=== PATIENT | male | born 1960 | race Caucasian/White ===

== ENCOUNTER 2018-06-17 17:24 | Inpatient (IN) | payer OTHER ==
[2018-06-17 20:28] VITALS: BMI 24.0
--- NOTE | 2018-06-17 22:19 | HP ---
"CIWA Score Nausea/Vomitin-No Nausea/No Vomiting Muscle Tremors: 3 Anxiety: 5 Agitation: 4-Moderately Restless Paroxysmal Sweats: No Perspiration Orientation: 0-Oriented Tacttile Disturbances: 1-Very Mild Itch/Numbness Auditory Disturbances: 0-None Visual Disturbances: 0-None Headache: 0-None Present CIWA-Ar Total Score: 13 - Admission Criteria OASAS Guidelines: Admission for Medically Managed Detox: Requires at least one of the followin. CIWA greater than 12 2. Seizures within the past 24 hours 3. Delirium tremens within the past 24 hours 4. Hallucinations within the past 24 hours 5. Acute intervention needed for co occurring medical disorder 6. Acute intervention needed for co occurring psychiatric disorder 7. Severe withdrawal that cannot be handled at a lower level of care (continued vomiting, continued diarrhea, abnormal vital signs) requiring intravenous medication and/or fluids 8. Patient presents the following: Acute intervention needed for co-occurring med or psych disorder Admission Criteria Met: Admission criteria met Admission ROS [facility] Chief Complaint: seeking detox/ rehab for polysubstance abuse Allergies/Adverse Reactions: Allergies Allergy/AdvReac Type Severity Reaction Status Date / Time No Known Allergies Allergy Unverified 06/17/18 20:23 History of Present Illness: 57 y.o. male with polysubstance abuse to include alcohol abuse and opioid dependence on mmtp here for detox. client is self referred. known to the program. ciwa 13 client reports only drinking 3 beers approx 3 times a week. hx/ o intake poor as client keeps giving conflicting information regarding use and frequency. denies cravings or withdrawal seizures. client is rx clonazepam 1 mg daily for hx/o anxiety. he is currently maintained on methadone 60 mg daily. reports last dosed today here at [facility] outpatient. reports longest clean time 1 year. denies si/hi/avh. domiciled,employed-auto claim representative, denies legals This report was requested by: Ana Gonzalez | Reference #: [id number] You have not added a AMAN number. Keeping your AMAN number(s) up to date on the My AMAN Numbers page will enable the separation of your prescriptions from others ' in the search results. Others' Prescriptions Patient Name: Jesus Fleming Date: 1960 Address: [address] [place] [address] Sex: Male Rx Written Rx Dispensed Drug Quantity Days Supply Prescriber Name 05/20/2018 05/20/2018 clonazepam 1 mg tablet 60 30 Judy Reynolds MD 05/05/2018 05/05/2018 clonazepam 1 mg tablet 30 15 Judy Reynolds MD 04/05/2018 04/05/2018 clonazepam 1 mg tablet 60 30 Judy Reynolds MD 03/04/2018 03/04/2018 clonazepam 1 mg tablet 60 30 Judy Reynolds MD 01/28/2018 01/28/2018 clonazepam 1 mg tablet 90 30 Judy Reynolds MD 12/30/2017 12/31/2017 clonazepam 1 mg tablet 90 30 Judy Reynolds MD 11/30/2017 12/06/2017 clonazepam 1 mg tablet 90 30 Judy Reynolds MD Exam Limitations: Altered Mental Status (delyed responses possible related to substance abuse) - Ebola screening Have you traveled outside of the country in the last 21 days: No (N) Have you had contact with anyone from an Ebola affected area: No Do you have a fever: No - Review of Systems Constitutional: Chills, Loss of Appetite, Changes in sleep, Unintentional Wgt. Loss EENT: reports: Dental Problems (dentures top/bottom) Respiratory: reports: No Symptoms reported Cardiac: reports: No Symptoms Reported GI: reports: Poor Appetite, Poor Fluid Intake, Other (rectal pain-chronic) : reports: No Symptoms Reported Musculoskeletal: reports: Joint Pain (chronic), Other (ambualtes with cane) Integumentary: reports: Rash (to upper extremities. denies pruritis) Neuro: reports: Tremors, Unsteady Gait (ambualtes with cane) Endocrine: reports: No Symptoms Reported Hematology: reports: No Symptoms Reported Psychiatric: reports: Anxious, Depressed Other Systems: Reviewed and Negative Patient History - Patient Medical History Hx Anemia: No Hx Asthma: No Hx Chronic Obstructive Pulmonary Disease (COPD): No Hx Cancer: No Hx Cardiac Disorders: No Hx Congestive Heart Failure: No Hx Hypertension: No Hx Hypercholesterolemia: Yes Hx Pacemaker: No HX Cerebrovascular Accident: No Hx Seizures: No Hx Dementia: No Hx Diabetes: No Hx Gastrointestinal Disorders: Yes (dilated cbd,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,pancreatic hepatic neoplasm) Hx Liver Disease: Yes (hx/o cirrhosis) Hx Genitourinary Disorders: No Hx Sexually Transmitted Disorders: No Hx Renal Disease (ESRD): No Hx Thyroid Disease: No Hx Human Immunodeficiency Virus (HIV): No (negative) Hx Hepatitis C: Yes (eradicated with 6 months therapy 2007) Hx Depression: Yes (last week patient stated 'feeling dedpressed') Hx Suicide Attempt: No Hx Bipolar Disorder: No Hx Schizophrenia: No - Patient Surgical History Past Surgical History: No Hx Neurologic Surgery: No Hx Cataract Extraction: No Hx Cardiac Surgery: No Hx Lung Surgery: No Hx Breast Surgery: No Hx Breast Biopsy: No Hx Abdominal Surgery: No Hx Appendectomy: No Hx Cholecystectomy: No Hx Genitourinary Surgery: No Hx Section: No Hx Orthopedic Surgery: Yes (ARTHROSCOPY LEFT KNEE) Anesthesia Reaction: No - PPD History Previous Implant?: Yes Documented Results: Negative w/proof Implanted On Prior [facility] Admission?: Yes Date: 11/23/13 Results: 0mm PPD to be Administered?: Yes - Smoking Cessation Smoking history: Current every day smoker Have you smoked in the past 12 months: Yes Aproximately how many cigarettes per day: 6 Cigars Per Day: 0 Hx Chewing Tobacco Use: Yes Initiated information on smoking cessation: Yes 'Breaking Loose' booklet given: 06/17/18 - Substance & Tx. History Hx Alcohol Use: Yes Hx Substance Use: Yes Substance Use Type: Alcohol, Cocaine, Heroin, Marijuana, Prescribed (mtd, clonzepam) Hx Substance Use Treatment: Yes ([facility]) - Substances abused Alcohol Substance route: Oral Frequency: 3-6 times per week Amount used: liquor- 2 pint, beer- 3 cans Age of first use: 19 Date of last use: 06/16/18 Marijuana/Hashish Substance route: Oral Frequency: 1-3 times last 30 days Amount used: 1 joint Age of first use: 12 Date of last use: 06/14/18 Cocaine Substance route: Inhalation Frequency: 3-6 times per week Amount used: 2 bags Age of first use: 17 Date of last use: 06/16/18 Family Disease History - Family Disease History Family Disease History: CA: Father (), Mother (BREAST) Admission Physical Exam BHS - Vital Signs Vital Signs: Vital Signs - 24 hr 05/03/19 20:19 Temperature 96.7 F L Pulse Rate 77 Respiratory 20 Rate Blood Pressure 122/81 - Physical General Appearance: Yes: Appropriately Dressed, Other (poor historian inconsistent hx/o ? due to drug use) HEENTM: Yes: EOMI, Normocephalic, Normal Voice, JOHNY, Pharynx Normal, Other ( dentures both) Respiratory: Yes: Chest Non-Tender, Lungs Clear, Normal Breath Sounds, No Respiratory Distress, No Accessory Muscle Use Neck: Yes: No masses,lesions,Nodules, Supple, Trachea in good position Breast: Yes: Breast Exam Deferred Cardiology: Yes: Regular Rhythm, Regular Rate, S1, S2 Abdominal: Yes: Normal Bowel Sounds, Non Tender, Flat, Soft Genitourinary: Yes: Within Normal Limits Back: Yes: Normal Inspection Musculoskeletal: Yes: Other (ambualtes with cane) Extremities: Yes: Normal Capillary Refill, Normal Range of Motion, Non-Tender, Tremors Neurological: Yes: Alert, Motor Strength 5/5, Disoriented, Depressed Affect Integumentary: Yes: Moist, Rash (diffuse flat patches of redness noted to front/ back torso arms. client reports some pruritis. reports rash is chronic present x 3 years) Lymphatic: Yes: Within Normal Limits - Diagnostic (1) Cannabis abuse, uncomplicated Current Visit: Yes Status: Acute (2) Cocaine dependence, uncomplicated Current Visit: Yes Status: Acute (3) Uncomplicated opioid abuse Current Visit: Yes Status: Chronic (4) Hepatitis C Current Visit: Yes Status: Chronic Qualifiers: Viral hepatitis chronicity: unspecified (5) Opioid dependence on agonist therapy Current Visit: Yes Status: Chronic (6) Anxiety Current Visit: Yes Status: Chronic (7) Chronic pain of multiple joints Current Visit: Yes Status: Chronic Comment: antiinflammatory diet, gentle ROM (8) Rash of unknown cause Current Visit: Yes Status: Chronic Cleared for Admission S - Detox or Rehab [facility] Level of Care: Medically Managed Detox Regimen/Protocol: Librium Claeared for Rehab Admission: No Inpatient Rehab Admission - Rehab Decision to Admit Inpatient rehab admission?: No"
[2018-06-17] MEDS ORDERED: IBUPROFEN 400 MG TABLET (FP) PO PRN ×2 (22:48)
[2018-06-17] MEDS ORDERED: BISMUTH SUBSALICYLATE 524 MG/30 ML UD PO PRN (22:48)
[2018-06-17] MEDS ORDERED: hydrOXYzine PAMOATE 25 MG CAPSULE (FP) PO PRN (22:48)
[2018-06-17] MEDS ORDERED: MENTHOL/PHENOL 1 EACH UD MM PRN (22:48)
[2018-06-17] MEDS ORDERED: BACLOFEN 10 MG TABLET (FP) PO PRN (22:48)
[2018-06-17] MEDS ORDERED: METHOCARBAMOL 500 MG TABLET PO PRN (22:48)
[2018-06-17] MEDS ORDERED: ONDANSETRON *ODT* 4 MG TABLET SL PRN (22:48)
[2018-06-17] MEDS ORDERED: chlordiazePOXIDE HCL 25 MG CAPSULE PO ONE (22:48)
[2018-06-17] MEDS ORDERED: ACETAMINOPHEN 325 MG TABLET (FP) PO PRN ×2 (22:48)
[2018-06-17] MEDS ORDERED: MAG HYDROX/AL HYDROX/SIMETH 30 ML UNIT-DOSE CUP PO PRN (22:48)
[2018-06-17] MEDS ORDERED: guaiFENesin 200 MG/10 ML 10 ML UNIT-DOSE CUPS PO PRN (22:48)
[2018-06-17] MEDS ORDERED: MAGNESIUM HYDROX 2400MG/30ML ORAL SUSPENSION 30 ML CUP PO PRN (22:48)
[2018-06-17] MEDS ORDERED: NICOTINE POLACRILEX 2 MG GUM BUC PRN (22:48)
[2018-06-17] MEDS ORDERED: P-EPHED 60MG/TRIPROLIDI 2.5MG TABLET PO PRN (22:48)
[2018-06-17] MEDS ORDERED: DICYCLOMINE HCL 10 MG CAPSULE PO PRN (22:48)
[2018-06-17] MEDS ORDERED: MAGNESIUM CITRATE 300 ML BOTTLE PO PRN (22:48)
[2018-06-17] MEDS ORDERED: chlordiazePOXIDE HCL 10 MG CAPSULE PO PRN (22:48)
[2018-06-17] MEDS: chlordiazePOXIDE HCL 25 MG CAPSULE PO SCH (23:48)
[2018-06-18] MEDS: chlordiazePOXIDE HCL 25 MG CAPSULE PO SCH ×2 (05:34→13:24)
--- NOTE | 2018-06-18 08:26 | EKG ---
Test Reason : Blood Pressure : / mmHG Vent. Rate : 080 BPM Atrial Rate : 080 BPM P-R Int : 180 ms QRS Dur : 106 ms QT Int : 386 ms P-R-T Axes : 077 065 069 degrees QTc Int : 445 ms NORMAL SINUS RHYTHM NORMAL ECG NO PREVIOUS ECGS AVAILABLE Confirmed by ABHILASH ORDONEZ, RC ([id number]) on 06/18/2018 8:26:19 AM Referred By: KM Confirmed By:RC HUNG MD
[2018-06-18] MEDS ORDERED: METHADONE HCL 10 MG TABLET PO ONE (08:47)
[2018-06-18] MEDS ORDERED: METHADONE 30 MG, METHADONE 40 MG PO ONE (09:30)
[2018-06-18] MEDS ORDERED: METHADONE HCL 10 MG TABLET ONE (10:02)
[2018-06-18] MEDS ORDERED: METHADONE HCL 40 MG DISPERSABLE TABLET ONE (10:03)
[2018-06-18] MEDS: PRENATAL VITAMINS W/ FOLIC ACID TABLET (FP) PO SCH (10:05)
[2018-06-18] MEDS: NICOTINE 14 MG/24 HOURS TOPICAL PATCH TD SCH (10:05)
[2018-06-18 10:20] LABS: HEMATOCRIT 37.6 % (35.4-49); HEMOGLOBIN 12.6 GM/dL (11.7-16.9); MCH 30.9 pg (25.7-33.7); MCHC 33.4 g/dl (32.0-35.9); MEAN CELL VOLUME 92.5 fl (80-96); MEAN PLT VOLUME 9.1 fl (7.5-11.1); PLATELET COUNT 191 K/MM3 (134-434); RBC 4.06 M/mm3 (4.00-5.60); WHITE BLOOD COUNT 6.9 K/mm3 (4.0-10.0)
[2018-06-18 10:32] LABS: ALK PHOS 70 U/L (45-117); ANION GAP 7 MMOL/L (8-16); BILIRUBIN,TOTAL 0.3 mg/dL (0.2-1); BLOOD UREA NITROGEN 20 mg/dL (7-18); CALCIUM 8.8 mg/dL (8.5-10.1); CHLORIDE 100 mmol/L (98-107); CO2 30 mmol/L (21-32); CREATININE 0.8 mg/dL (0.55-1.3); GLUCOSE,RANDOM 104 mg/dL (74-106); POTASSIUM 3.9 mmol/L (3.5-5.1); SGOT/AST 18 U/L (15-37); SGPT/ALT 17 U/L (13-61); SODIUM 137 mmol/L (136-145); TOT PROT 6.8 g/dl (6.4-8.2)
--- NOTE | 2018-06-18 12:15 | CONSULT ---
[facility] Psychiatric Consult - Data Date of interview: 06/18/18 Admission source: [facility] Identifying data: REadmission to [facility] for this 57 y/o male self- referred for detoxification (alcohol, heroin, cannabis, cocaine, benzodiazepine) . Examined at [address] [place] [address]. Patient is single, no dependents, homeless, part-time employed and supported on food stamps. Substance Abuse History: Confirmed by patient in this session. Details in current [facility] report as follows : Smoking history: Current every day smoker. Have you smoked in the past 12 months: Yes. Aproximately how many cigarettes per day: 6. Cigars Per Day: 0. Hx Chewing Tobacco Use: Yes. Initiated information on smoking cessation: Yes. 'Breaking Loose' booklet given: . - Substance & Tx. History. Hx Alcohol Use: Yes. Hx Substance Use: Yes. Substance Use Type: Alcohol, Cocaine, Heroin, Marijuana, Prescribed (mtd, clonzepam). Hx Substance Use Treatment: Yes ([facility]). - Substances abused. Alcohol. Substance route: Oral. Frequency: 3-6 times per week. Amount used: liquor- 2 pint, beer- 3 cans. Age of first use: 19. Date of last use: . Marijuana/Hashish. Substance route: Oral. Frequency: 1-3 times last 30 days. Amount used: 1 joint. Age of first use: 12. Date of last use: . Cocaine. Substance route: Inhalation. Frequency: 3-6 times per week. Amount used: 2 bags. Age of first use: 17. Date of last use: 06/16/18 Medical History: Remarkable for hepatitis C, liver cirrhosis, dyslipidemia and a history of arthroscopy (left knee). Psychiatric History: Patient denies history of psychiatric hospitalizations or suicide attempts. Mr Fleming is currently on methadone maintenance (70 mg/day) at the [facility] program in [place]. Physical/Sexual Abuse/Trauma History: Patient denies. Additional Comment: Toxicology not available. Mental Status Exam - Mental Status Exam Alert and Oriented to: Time, Place, Person Cognitive Function: Good Patient Appearance: Unkempt, Disheveled Mood: Hostile, Nervous, Withdrawn, Irritable Affect: Mood Congruent, Constricted Patient Behavior: Fatigued, Uncooperative Speech Pattern: Clear Voice Loudness: Normal Thought Process: Goal Oriented Thought Disorder: Not Present Hallucinations: Denies Suicidal Ideation: Denies Homicidal Ideation: Denies Insight/Judgement: Poor Sleep: Well Appetite: Good Muscle strength/Tone: Normal Gait/Station: Normal Psychiatric Findings - Problem List ([place] 1, 2,3) (1) Alcohol dependence Current Visit: Yes Status: Chronic (2) Opioid dependence on agonist therapy Current Visit: Yes Status: Chronic (3) Cocaine dependence, uncomplicated Current Visit: Yes Status: Chronic (4) Sedative dependence Current Visit: Yes Status: Chronic (5) Cannabis abuse, uncomplicated Current Visit: Yes Status: Chronic (6) Nicotine dependence Current Visit: Yes Status: Chronic (7) Substance induced mood disorder Current Visit: Yes Status: Chronic - Initial Treatment Plan Initial Treatment Plan: Psychoeducation. Sleep hygiene. Support. AA/NA meetings. Groups. Detoxification. Observation.
--- NOTE | 2018-06-18 15:05 | PN ---
S CIWA - CIWA Score Nausea/Vomitin-No Nausea/No Vomiting Muscle Tremors: 4-Moderate,w/Arms Extend Anxiety: 4-Mod. Anxious/Guarded Agitation: 4-Moderately Restless Paroxysmal Sweats: 1-Minimal Palms Moist Orientation: 0-Oriented Tacttile Disturbances: 0-None Auditory Disturbances: 0-None Visual Disturbances: 0-None Headache: 0-None Present CIWA-Ar Total Score: 13 BHS Progress Note (SOAP) Subjective: C/O ANXIETY,TREMORS, IRRITABILITY, SWEATS, INTERMITTENT SLEEP. Objective: 06/18/18 15:12 Vital Signs 06/18/18 06/18/18 09:37 13:29 Temperature 96.6 F L 97.4 F L Pulse Rate 83 80 Respiratory 18 20 Rate Blood Pressure 92/63 103/62 Laboratory Tests 06/18/18 06/18/18 07:45 08:00 WBC 6.9 RBC 4.06 Hgb 12.6 Hct 37.6 MCV 92.5 MCH 30.9 MCHC 33.4 RDW 14.0 Plt Count 191 MPV 9.1 Sodium 137 Potassium 3.9 Chloride 100 Carbon Dioxide 30 Anion Gap 7 L BUN 20 H Creatinine 0.8 Creat Clearance w eGFR 98.94 Random Glucose 104 Calcium 8.8 Total Bilirubin 0.3 AST 18 ALT 17 Alkaline Phosphatase 70 Total Protein 6.8 Albumin 4.0 Assessment: 06/18/18 15:12 WITHDRAWAL SX Plan: CONTINUE DETOX INCREASE PO FLUIDS
[2018-06-18 17:25] LABS: URINE APPEARANCE TURBID; URINE BILIRUBIN NEGATIVE (NEGATIVE); URINE COLOR DK YELLOW; URINE GLUCOSE (UA) NEGATIVE (NEGATIVE); URINE KETONE NEGATIVE (NEGATIVE); URINE LEUK ESTERASE NEGATIVE (NEGATIVE); URINE NITRITE NEGATIVE (NEGATIVE); URINE PROTEIN NEGATIVE (NEGATIVE); URINE UROBILINOGEN 0.2 mg/dL (0.2-1.0)
[2018-06-18] MEDS: THIAMINE HCL 100 MG TABLET (FP) PO SCH (22:00)
[2018-06-18] MEDS: MELATONIN 5 MG TABLETS PO PRN (22:00)
[2018-06-18] MEDS: chlordiazePOXIDE 5 MG CAPSULE PO SCH (22:01)
[2018-06-19] MEDS ORDERED: METHADONE HCL 10 MG TABLET ONE (04:41)
[2018-06-19] MEDS ORDERED: METHADONE HCL 40 MG DISPERSABLE TABLET ONE (04:42)
[2018-06-19] MEDS: chlordiazePOXIDE 5 MG CAPSULE PO SCH ×2 (05:27→14:10)
[2018-06-19] MEDS: METHADONE 30 MG, METHADONE 40 MG PO SCH (05:27)
[2018-06-19] MEDS ORDERED: METHADONE HCL 10 MG TABLET PO SCH (06:00)
[2018-06-19] MEDS: NICOTINE 14 MG/24 HOURS TOPICAL PATCH TD SCH (10:33)
[2018-06-19] MEDS: PRENATAL VITAMINS W/ FOLIC ACID TABLET (FP) PO SCH (10:33)
--- NOTE | 2018-06-19 12:36 | PN ---
[facility] CIWA - CIWA Score Nausea/Vomitin-Mild Nausea/No Vomiting Muscle Tremors: 2 Anxiety: 2 Agitation: 2 Paroxysmal Sweats: 1-Minimal Palms Moist Orientation: 0-Oriented Tacttile Disturbances: 0-None Auditory Disturbances: 0-None Visual Disturbances: 0-None Headache: 1-Very Mild CIWA-Ar Total Score: 9 S Progress Note (SOAP) Subjective: feeling better today discuss aftercare with staff agrees to return to methadone program for medial and mental issues Objective: 06/19/18 12:37 Vital Signs Temperature 96.1 F L 06/19/18 09:25 Pulse Rate 75 06/19/18 09:25 Respiratory Rate 18 06/19/18 09:25 Blood Pressure 93/62 06/19/18 09:25 O2 Sat by Pulse Oximetry (%) Laboratory Last Values WBC 6.9 K/mm3 (4.0-10.0) 06/18/18 08:00 RBC 4.06 M/mm3 (4.00-5.60) 06/18/18 08:00 Hgb 12.6 GM/dL (11.7-16.9) 06/18/18 08:00 Hct 37.6 % (35.4-49) 06/18/18 08:00 MCV 92.5 fl (80-96) 06/18/18 08:00 MCH 30.9 pg (25.7-33.7) 06/18/18 08:00 MCHC 33.4 g/dl (32.0-35.9) 06/18/18 08:00 RDW 14.0 % (11.9-15.9) 06/18/18 08:00 Plt Count 191 K/MM3 (134-434) 06/18/18 08:00 MPV 9.1 fl (7.5-11.1) 06/18/18 08:00 Sodium 137 mmol/L (136-145) 06/18/18 07:45 Potassium 3.9 mmol/L (3.5-5.1) 06/18/18 07:45 Chloride 100 mmol/L (98-107) 06/18/18 07:45 Carbon Dioxide 30 mmol/L (21-32) 06/18/18 07:45 Anion Gap 7 MMOL/L (8-16) L 06/18/18 07:45 BUN 20 mg/dL (7-18) H 06/18/18 07:45 Creatinine 0.8 mg/dL (0.55-1.3) 06/18/18 07:45 Creat Clearance w eGFR 98.94 (>60) 06/18/18 07:45 Random Glucose 104 mg/dL (74-106) 06/18/18 07:45 Calcium 8.8 mg/dL (8.5-10.1) 06/18/18 07:45 Total Bilirubin 0.3 mg/dL (0.2-1) 06/18/18 07:45 AST 18 U/L (15-37) 06/18/18 07:45 ALT 17 U/L (13-61) 06/18/18 07:45 Alkaline Phosphatase 70 U/L (45-117) 06/18/18 07:45 Total Protein 6.8 g/dl (6.4-8.2) 06/18/18 07:45 Albumin 4.0 g/dl (3.4-5.0) 06/18/18 07:45 Urine Color Dk yellow 06/18/18 12:22 Urine Appearance Turbid 06/18/18 12:22 Urine pH 5.0 (5.0-8.0) 06/18/18 12:22 Ur Specific [place] 1.032 (1.010-1.035) 06/18/18 12:22 Urine Protein Negative (NEGATIVE) 06/18/18 12:22 Urine Glucose (UA) Negative (NEGATIVE) 06/18/18 12:22 Urine Ketones Negative (NEGATIVE) 06/18/18 12:22 Urine Blood Negative (NEGATIVE) 06/18/18 12:22 Urine Nitrite Negative (NEGATIVE) 06/18/18 12:22 Urine Bilirubin Negative (NEGATIVE) 06/18/18 12:22 Urine Urobilinogen 0.2 mg/dL (0.2-1.0) 06/18/18 12:22 Ur Leukocyte Esterase Negative (NEGATIVE) 06/18/18 12:22 RPR Titer Nonreactive (NONREACTIVE) 06/18/18 07:45 lab noted Assessment: 06/19/18 12:37 mild alcohol withdrawal sx Plan: continue detox
[2018-06-19] MEDS ORDERED: chlordiazePOXIDE HCL 10 MG CAPSULE PO PRN (21:00)
[2018-06-19] MEDS: chlordiazePOXIDE HCL 10 MG CAPSULE PO SCH (22:04)
[2018-06-19] MEDS: THIAMINE HCL 100 MG TABLET (FP) PO SCH (22:04)
[2018-06-19] MEDS: MELATONIN 5 MG TABLETS PO PRN (22:06)
[2018-06-20] MEDS ORDERED: METHADONE HCL 10 MG TABLET ONE (04:23)
[2018-06-20] MEDS ORDERED: METHADONE HCL 40 MG DISPERSABLE TABLET ONE (04:24)
[2018-06-20] MEDS: chlordiazePOXIDE HCL 10 MG CAPSULE PO SCH (06:01)
[2018-06-20] MEDS: METHADONE 30 MG, METHADONE 40 MG PO SCH (06:01)
[2018-06-20 06:22] VITALS: TEMP 97.2
[2018-06-20 09:23] VITALS: BP 94/61; PULSE 66
[2018-06-20] MEDS: PRENATAL VITAMINS W/ FOLIC ACID TABLET (FP) PO SCH (10:27)
[2018-06-20] MEDS: NICOTINE 14 MG/24 HOURS TOPICAL PATCH TD SCH (10:27)
--- NOTE | 2018-06-20 12:47 | DS ---
[facility] Detox Discharge Summary Admission Date: 06/17/18 Discharge Date: 06/20/18 - History Present History: Alcohol Dependence Additional Comments: 57 years old male admitted on 06/17/18 for alcohol withdrawal stabilization completed detox regimen alert no acute distress aftercare new focus Pertinent Past History: bring in medication list and lab report to aftercare appointment - Physical Exam Results Vital Signs: Vital Signs Temperature 97.2 F L 06/20/18 09:23 Pulse Rate 66 06/20/18 09:23 Respiratory Rate 18 06/20/18 09:23 Blood Pressure 94/61 06/20/18 09:23 O2 Sat by Pulse Oximetry (%) Pertinent Admission Physical Exam Findings: alcohol withdrawal sx Laboratory Last Values WBC 6.9 K/mm3 (4.0-10.0) 06/18/18 08:00 RBC 4.06 M/mm3 (4.00-5.60) 06/18/18 08:00 Hgb 12.6 GM/dL (11.7-16.9) 06/18/18 08:00 Hct 37.6 % (35.4-49) 06/18/18 08:00 MCV 92.5 fl (80-96) 06/18/18 08:00 MCH 30.9 pg (25.7-33.7) 06/18/18 08:00 MCHC 33.4 g/dl (32.0-35.9) 06/18/18 08:00 RDW 14.0 % (11.9-15.9) 06/18/18 08:00 Plt Count 191 K/MM3 (134-434) 06/18/18 08:00 MPV 9.1 fl (7.5-11.1) 06/18/18 08:00 Sodium 137 mmol/L (136-145) 06/18/18 07:45 Potassium 3.9 mmol/L (3.5-5.1) 06/18/18 07:45 Chloride 100 mmol/L (98-107) 06/18/18 07:45 Carbon Dioxide 30 mmol/L (21-32) 06/18/18 07:45 Anion Gap 7 MMOL/L (8-16) L 06/18/18 07:45 BUN 20 mg/dL (7-18) H 06/18/18 07:45 Creatinine 0.8 mg/dL (0.55-1.3) 06/18/18 07:45 Creat Clearance w eGFR 98.94 (>60) 06/18/18 07:45 Random Glucose 104 mg/dL (74-106) 06/18/18 07:45 Calcium 8.8 mg/dL (8.5-10.1) 06/18/18 07:45 Total Bilirubin 0.3 mg/dL (0.2-1) 06/18/18 07:45 AST 18 U/L (15-37) 06/18/18 07:45 ALT 17 U/L (13-61) 06/18/18 07:45 Alkaline Phosphatase 70 U/L (45-117) 06/18/18 07:45 Total Protein 6.8 g/dl (6.4-8.2) 06/18/18 07:45 Albumin 4.0 g/dl (3.4-5.0) 06/18/18 07:45 Urine Color Dk yellow 06/18/18 12:22 Urine Appearance Turbid 06/18/18 12:22 Urine pH 5.0 (5.0-8.0) 06/18/18 12:22 Ur Specific [place] 1.032 (1.010-1.035) 06/18/18 12:22 Urine Protein Negative (NEGATIVE) 06/18/18 12:22 Urine Glucose (UA) Negative (NEGATIVE) 06/18/18 12:22 Urine Ketones Negative (NEGATIVE) 06/18/18 12:22 Urine Blood Negative (NEGATIVE) 06/18/18 12:22 Urine Nitrite Negative (NEGATIVE) 06/18/18 12:22 Urine Bilirubin Negative (NEGATIVE) 06/18/18 12:22 Urine Urobilinogen 0.2 mg/dL (0.2-1.0) 06/18/18 12:22 Ur Leukocyte Esterase Negative (NEGATIVE) 06/18/18 12:22 RPR Titer Nonreactive (NONREACTIVE) 06/18/18 07:45 lab noted - Treatment Hospital Course: Detox Protocol Followed, Detoxed Safely, Responded well, Discharged Condition Good, Rehab Referral Accepted Patient has Accepted a Rehab Referral to: new focus - Medication Discharge Medications: Ambulatory Orders Methadone HCl 60 mg PO DAILY 03/19/15 - Diagnosis (1) Alcohol dependence with uncomplicated withdrawal Status: Acute (2) Hepatitis C Status: Chronic Qualifiers: Viral hepatitis chronicity: unspecified Hepatic coma status: without hepatic coma Qualified Code(s): B19.20 - Unspecified viral hepatitis C without hepatic coma (3) [facility] Status: Chronic (4) Nicotine dependence Status: Acute Qualifiers: Nicotine product type: cigarettes Substance use status: in withdrawal Qualified Code(s): F17.213 - Nicotine dependence, cigarettes, with withdrawal (5) Substance induced mood disorder Status: Suspected - AMA Did Patient Leave Against Medical Advice: No
== END 2018-06-20 10:25 | disposition home or self-care (01) | DRG 773 ==
LOC: YASAS 17:24 → Y3N 23:08
PROVIDERS: ADMIT Surgery; ATTEND Surgery
PROC: HZ2ZZZZ Detoxification Services for Substance Abuse Treatment (ICD-10-PCS; principal; 2018-06-17)
DX: F10.230 Alcohol dependence with withdrawal, uncomplicated (principal); F14.20 Cocaine dependence, uncomplicated; F13.20 Sedative, hypnotic or anxiolytic dependence, uncomplicated; F11.20 Opioid dependence, uncomplicated; F12.20 Cannabis dependence, uncomplicated; F17.213 Nicotine dependence, cigarettes, with withdrawal; F19.24 Other psychoactive substance dependence with psychoactive substance-induced mood disorder; F32.9 Major depressive disorder, single episode, unspecified; B19.20 Unspecified viral hepatitis C without hepatic coma; M25.50 Pain in unspecified joint; R21 Rash and other nonspecific skin eruption
CPT/HCPCS: 36415; 80053; 81003; 85027; 86593; 93005; 93010